=== PATIENT | female | born 1995 | race African-American/Black ===

== ENCOUNTER 2021-03-19 17:12 | Emergency (ER) | payer MEDICAID ==
[~2021-03-19] VITALS: Ht 160 cm; Wt 63.5 kg
[2021-03-19 17:47] VITALS: BP_SYST 112
[2021-03-19] MEDS ORDERED: ALBMDI INH (18:39)
[2021-03-19] MEDS ORDERED: ONDA4TAB5 PO (18:39)
[2021-03-19] MEDS ORDERED: AZITHROMYCIN 250 MG TABLET PO ONE ×2 (18:45)
[2021-03-19] MEDS ORDERED: cefTRIAXone 250 MG VIAL IM ONE ×2 (18:45)
[2021-03-19] MEDS ORDERED: cefTRIAXone 500 MG VIAL ONE (18:54)
[2021-03-19] MEDS ORDERED: LIDOCAINE 1%, 20 ML MDV 20 ML ONE (18:55)
[2021-03-19] MEDS ORDERED: LIDOCAINE 1% 10 MG/ML, 20 ML MDV INJ ONE (19:00)
[2021-03-19 19:02] VITALS: BP_SYST 115
== END 2021-03-19 18:56 | disposition home or self-care (01) ==
LOC: SED 17:22
DX: Z11.3 Encounter for screening for infections with a predominantly sexual mode of transmission (principal); Z79.899 Other long term (current) drug therapy
CPT/HCPCS: 81025; 87491; 87591; 96372; 99283; J0696; J2001; Q0144